=== PATIENT | female | born 1970 | race Caucasian/White ===

== ENCOUNTER 2018-09-17 17:10 | Emergency (ER) | payer OTHER ==
[~2018-09-17] VITALS: Wt 90.7 kg
[2018-09-17 17:10] VITALS: BP 128/56
[~2018-09-17 17:10] MED LIST: ALEVE220 MG PO; BRIN20TA PO; BUSPIRONE15 MG PO; CELEXA40 MG PO; CIPRO HC 0.2%-110 ML OT; CLARITIN10 MG PO; CLONAZEPAM1 MG PO; CYMBALTA20 M1 PO; EFFEXOR XR150 M1 PO; FERROUS SULFAT325 MG PO; FETZIMA80 M1 PO; FIORICET 50-301 EACH PO; FLORICET PO; IBUPROFEN 30 M800 MG PO; KLONOPIN1 M1 PO; NAPROSYN500 MG PO; NORCO 325 MG-51 TAB PO; PROTONIX40 M1 PO; REXULTI2 MG PO; TIZANIDINE HCL4 MG PO; VITAMIN D50000 I3 PO; WELLBUTRIN SR150 MG PO; [UNRECOGNIZED DRUG - OTHER]
[2018-09-17] MEDS ORDERED: VIBRAMYCIN100 MG PO (17:49)
[2018-09-17] MEDS ORDERED: FLONASE ALLERG9.9 ML NAS (17:49)
[2018-09-17] MEDS ORDERED: PREDNISONE10 MG PO (17:49)
[2018-09-17] MEDS ORDERED: CLARITIN10 MG PO (17:49)
== END 2018-09-17 17:57 | disposition home or self-care (01) ==
LOC: ED 17:10
DX: J20.9 Acute bronchitis, unspecified (principal); R03.0 Elevated blood-pressure reading, without diagnosis of hypertension; Z79.899 Other long term (current) drug therapy

== ENCOUNTER → 2018-11-12 | Outpatient (CLI) | payer OTHER ==
[~2018-11-12] MED LIST changes: +FLONASE ALLERG9.9 ML NAS; +PREDNISONE10 MG PO; +VIBRAMYCIN100 MG PO
[2018-11-12 09:31] LABS: CREATININE 0.73 mg/dL (0.55-1.02)
== END | disposition home or self-care (01) ==
LOC: CT 08:51
PROVIDERS: Family Medicine
DX: R93.89 Abnormal findings on diagnostic imaging of other specified body structures (principal); J40 Bronchitis, not specified as acute or chronic; R05 Cough; R59.0 Localized enlarged lymph nodes

== ENCOUNTER → 2018-11-20 | Outpatient (CLI) | payer OTHER ==
[2018-11-20 08:58] LABS: CREATININE 0.83 mg/dL (0.55-1.02)
== END | disposition home or self-care (01) ==
LOC: CT 08:32 → LAB 08:32 → CT 09:00
PROVIDERS: Family Medicine
DX: D28.7 Benign neoplasm of other specified female genital organs (principal); C79.9 Secondary malignant neoplasm of unspecified site; K80.20 Calculus of gallbladder without cholecystitis without obstruction

== ENCOUNTER → 2020-01-05 | Outpatient (CLI) | payer BC ==
--- NOTE | 2020-01-05 06:45 | NUR ---
INFORMED CONSENT OBTAINED FOR STANDARD GXT WITH DR. HOLT. RESTING EKG NSR WITH A SUPINE HR OF 86 WITH BP OF 90/60 AND HR OF 108 WITH BP OF 92/64 IN STANDING POSITION. PT COMPLETED 5:00 OF A 2:00 JAHAIRA PROTOCOL. COMPLETED 1:00 OF STAGE III AT 3.4 MPH WITH 14% GRADE. REACHED A PEAK HR OF 166 WHICH IS 98% OF PREDICTED MAX WITH A PEAK BP OF 126/50. TEST TERMINATED BECAUSE OF FATIGUE AND SOB. PEAK SPO2 OF 100%. HAD NO CHEST PAIN OR ANY EKG CHANGES. HAS AN AVERAGE EXERCISE TOLERANCE. NEGATIVE STANDARD GXT. LAST RECOVERY HR OF 108 WITH BP OF 108/58. IV DISCONTINUED END OF RECOVERY AND DISCHARGED IN STABLE CONDITION.
== END | disposition home or self-care (01) ==
LOC: CARD 00:07
DX: R06.09 Other forms of dyspnea (principal); R06.02 Shortness of breath

== ENCOUNTER 2023-06-15 15:28 | Emergency (ER) | payer BC ==
[~2023-06-15] VITALS: Ht 170.1 cm; Wt 90.7 kg
[2023-06-15 15:40] VITALS: BP 121/73
[2023-06-15 15:56] LABS: BASO % 0.5 % (0.0-1.0); EOS # 0.2 10*3/uL (0.0-0.4); EOS % 2.7 % (1.0-4.0); HEMATOCRIT 44.1 % (37.0-47.0); LYMPH # 1.6 10*3/uL (1.3-4.4); LYMPH % 18.9 % (27.0-41.0); MEAN CORPUSCULAR HGB 33.1 pg (27.0-31.0); MEAN CORPUSCULAR HGB CONC 33.8 g/dl (33.0-37.0); MONO # 0.7 10*3/uL (0.1-1.0); MONO % 8.1 % (3.0-9.0); NEUT # 5.8 10*3/uL (2.3-7.9); NEUT % 69.6 % (47.0-73.0); PLATELET COUNT AUTOMATED 355 10*3/uL (130-400); RED CELL DISTRI WIDTH 12.9 % (0-14.5); WHITE BLOOD COUNT 8.3 10*3/uL (4.8-10.8)
[2023-06-15 16:07] LABS: ACT PARTIAL THROMBO TIME 27.7 SECONDS (20.0-32.1)
[2023-06-15 16:18] LABS: ALKALINE PHOSPHATASE 80 U/L (46-116); BUN 16 mg/dl (9-23); CHLORIDE 104 mmol/L (98-107); POTASSIUM 4.2 mmol/L (3.4-5.1); SGPT/ALT 31 U/L (10-49); TOTAL PROTEIN 7.5 gm/dL (6.0-8.0)
== END 2023-06-15 17:22 | disposition home or self-care (01) ==
LOC: ED 15:28
PROVIDERS: Internal Medicine
DX: F41.9 Anxiety disorder, unspecified (principal); K21.9 Gastro-esophageal reflux disease without esophagitis; F32.A Depression, unspecified; Z98.890 Other specified postprocedural states